=== PATIENT | male | born 1965 | race Hispanic/Latino ===

== ENCOUNTER 2018-05-16 06:16 | Day surgery (SDC) | payer OTHER ==
[2018-05-16] MEDS ORDERED: Tranexamic Acid 2 ML ONE (07:10)
[2018-05-16] MEDS ORDERED: Vancomycin 1 g Inj ONE ×2 (07:10→09:17)
[2018-05-16] MEDS ORDERED: Sodium Chloride 0.9% 40 ML IV ONE (07:11)
[2018-05-16] MEDS ORDERED: Bupivacaine 0.5% Inj(30mL) ONE ×2 (07:12→09:25)
[2018-05-16] MEDS ORDERED: Bupivacaine Liposomal Inj 20 ml ONE (07:13)
[2018-05-16] MEDS ORDERED: Midazolam 2 MG/2 ML VIAL ONE (07:23)
[2018-05-16] MEDS ORDERED: Propofol 10 mg/ml Inj (20 ML) ONE ×2 (07:23→08:25)
[2018-05-16] MEDS ORDERED: Rocuronium 10 mg/ml (5 ml) ONE (07:27)
[2018-05-16] MEDS ORDERED: Morphine 4 mg/ml ISec ONE ×2 (08:06→09:36)
[2018-05-16] MEDS ORDERED: Neostigmine Methylsulfate 3mg/3ml Syringe IV ONE (08:09)
[2018-05-16] MEDS ORDERED: Oxycodone/Acetaminophen 5/325 mg Tab PO PRN (11:05)
--- NOTE | 2018-05-16 11:05 | PCM.SURG1 ---
Surgeon's Initial Post Op Note - Surgeon's Notes Surgeon: Jayce Keith MD Color Adviser: Radha Zavala PA-C Type of Anesthesia: General Endo Anesthesia Administered By: Dr. Tobin Pre-Operative Diagnosis: left knee osteoarthritis Operative Findings: see full note Post-Operative Diagnosis: same Operation Performed: left partial knee replacement Specimen/Specimens Removed: none Estimated Blood Loss: EBL {In ML}: 50 Blood Products Given: N/A Drains Used: No Drains Post-Op Condition: Fair Date of Surgery/Procedure: 05/16/18 Time of Surgery/Procedure: 11:04
[2018-05-16] MEDS ORDERED: HYDROmorphone 0.5 mg/0.5 ml ISec ONE ×2 (11:08→11:34)
[2018-05-16] MEDS ORDERED: Pantoprazole 40 mg EC Tab PO PRN (11:12)
[2018-05-16] MEDS: HYDROmorphone 0.5 mg/0.5 ml ISec IVP PRN ×4 (11:21→23:52)
[2018-05-16] MEDS ORDERED: HYDROmorphone 0.5 mg/0.5 ml ISec IVP PRN (11:43)
--- NOTE | 2018-05-16 11:52 | RAD ---
Date of service: 05/16/2018 PROCEDURE: Left Knee Radiographs. HISTORY: Pain. COMPARISON: None. FINDINGS: BONES: Status post left knee medial hemiarthroplasty. No acute fracture. Prosthesis grossly intact. There is air in the suprapatellar bursa consistent with postoperative change. There is also suprapatellar bursal fluid. JOINTS: Medial hemiarthroplasty JOINT EFFUSION: None. OTHER FINDINGS: None. IMPRESSION: Status post medial hemiarthroplasty.
[2018-05-16 12:59] VITALS: BMI 29.0
[2018-05-16] MEDS ORDERED: Pneumococcal 23-Valent Vaccine IM ONE (13:28)
[2018-05-16] MEDS ORDERED: Influenza Vaccine 60 mcg/0.5 mL SYR (4YR UP) IM ONE (13:28)
[2018-05-16] MEDS ORDERED: HYDROmorphone 1 mg/ml PCA 30 ML IV PRN (16:08)
[2018-05-16] MEDS: ceFAZolin IV 2 gm in Dextrose 2 GM/50 ML BAG IVPB SCH ×2 (17:10→23:52)
[2018-05-16] MEDS: Oxycodone/Acetaminophen 5/325 mg Tab PO PRN ×2 (17:39→22:17)
--- NOTE | 2018-05-16 23:17 | OP ---
PROCEDURE DATE: 05/16/2018 PREOPERATIVE DIAGNOSIS: Left knee medial compartment arthrosis. POSTOPERATIVE DIAGNOSIS: Left knee medial compartment arthrosis. PROCEDURE: Left medial compartment arthroplasty. SURGEON: Tomer Keith MD ASSISTANTS: Dr. Keith was assisted by Claire Ibarra and Elvie Castorena, the physician assistants. Both physician assistants were scrubbed and present throughout the entire case and assisted in patient positioning, retraction and closure. ANESTHESIA: General. COMPLICATIONS: None. ESTIMATED BLOOD LOSS: 20 mL. TOURNIQUET TIME: 130 minutes at 300 mmHg. IMPLANT: Biomet partial knee replacement. INDICATION FOR PROCEDURE: This is a 52-year-old gentleman who presented with longstanding medial-sided knee pain. Clinical examination was consistent with a medial joint line tenderness to palpation. The patient was noted to be stable with varus and valgus stress. The patient was noted to have a negative Jason and negative posterior drawer. Radiographic and MRI examination was consistent with [id number] medial compartment disease and also some mild patellofemoral degenerative changes. After a period of failed nonsurgical management, recommendations were for left partial knee replacement. The risks, benefits and alternatives of the procedure were discussed with the patient including the possibility of later conversion to a total knee replacement and the patient understood these risks and informed consent was obtained. OPERATIVE PROCEDURE: After the surgical site was signed in the preoperative holding area, the patient was taken to the operating room and placed supine on the operating room table. After the administration of general anesthesia, the patient received 2 g of Ancef IV. Tourniquet was placed about the left thigh. Care was taken to make sure all bony prominences and nerves were well padded and protected and the left lower extremity was prepped and draped in the usual sterile fashion. Left lower extremity was exsanguinated and tourniquet was inflated. Approximately 6 cm medial parapatellar longitudinal incision was made. Soft tissues were dissected sharply down to the capsule and a medial arthrotomy was performed. Once the knee joint was exposed, the medial meniscus and part of the anterior fat pad were resected to give us excellent visualization of the medial compartment. Next, using the extramedullary tibial alignment guide, the alignment guide was pinned into place and satisfied with our alignment, a tibial resection was performed. Next, the flexion gap was checked with the appropriate size spacer and our attention was directed to the femur. Central portion of the medial condyle at a point perpendicular to the tibial component, the first part of the hole was then drilled using femoral guide jig and similarly the central plug hole was then drilled. With femoral posterior cutting guide in place, posterior resection was performed. At this point, using a reamer and the appropriate , the medial femoral condyle was reamed until the flexion and extension gaps were balanced and equal. At this point, any excess bone around the periphery of the implant was then rongeured away. Satisfied, a trial tibia, trial femur, and trial bearing was placed and the patient was noted to have full extension and flexion and stable throughout range of motion and stable with varus and valgus stress. The trial components were then removed. The holes in our medial femoral condyle were drilled to allow for cement interdigitation. At this point, the knee joint was pulse lavaged with antibiotic saline solution and the bony surfaces were dried. Prior to cementing, the keel hole for our tibial component was drilled using a reciprocating saw. At this point, the actual tibial and femoral components were cemented with a trial bearing. The knee was held in approximately 40 degrees of flexion while axial compression was applied across the knee to allow for pressurization of the component. Once the cement had hardened, the wound was expected for any debris and any excess cement was removed. The knee joint was once again pulse lavaged and the actual bearing was then inserted. At this point, the knee was taken through range of motion and again was noted to have full extension and flexion and stable throughout. The varus and valgus stress was applied to ensure that the MCL and LCL was still competent. Satisfied, the arthrotomy was closed also using #1 Vicryl suture. The subcutaneous tissue was closed using 2-0 Vicryl suture and the skin was closed using 3-0 nylon. Sterile dressing was applied and a knee immobilizer was placed. The patient was awakened from the procedure and taken to the recovery room in stable condition. Tomer Keith MD
[2018-05-17] MEDS: Oxycodone/Acetaminophen 5/325 mg Tab PO PRN ×2 (03:31→11:15)
--- NOTE | 2018-05-17 07:41 | CP.PCM.PN ---
Subjective - Date & Time of Evaluation Date of Evaluation: 05/17/18 Time of Evaluation: 07:39 - Subjective Subjective: Patient see and examined. POD#1 s/p L partial knee replacement. Patient doing good. Denies any significant pain L knee: dressings clean dry and intact. Calf and thigh are soft and non-tender. NVI distally POD#1 s/p L partial knee replacement discharge to home crutches for support as needed Prescription for keflex and pain medication in chart Will see patient in Dr. Keith's office on Tuesday for a wound check Objective - Vital Signs/Intake and Output Vital Signs (last 24 hours): Temp Pulse Resp BP Pulse Ox 98.3 F 86 18 127/79 96 05/16/18 22:42 05/16/18 22:42 05/16/18 22:42 05/16/18 22:42 05/16/18 22:42 Intake and Output: 05/17/18 05/17/18 06:59 18:59 Intake Total 840 Output Total 1150 Balance -310 - Medications Medications: Current Medications Acetaminophen (Tylenol 325mg Tab) 650 mg PO Q6H NESTOR Last Admin: 05/16/18 23:51 Dose: 650 mg Aspirin (Ecotrin) 325 mg PO BID [facility] Hydromorphone HCl (Dilaudid) 0.5 mg IVP Q4H PRN PRN Reason: Pain, severe (8-10) Last Admin: 05/16/18 23:52 Dose: 0.5 mg Hydromorphone HCl (Dilaudid) 0.5 mg IVP Q10M PRN PRN Reason: PRN PAIN SCALE 4-10 Metoclopramide HCl (Reglan) 10 mg IVP Q6H PRN PRN Reason: Nausea/Vomiting Last Admin: 05/16/18 15:49 Dose: 10 mg Oxycodone/Acetaminophen (Percocet 5/325 Mg Tab) 2 tab PO Q4H PRN PRN Reason: Pain, moderate (4-7) Stop: 05/19/18 11:06 Last Admin: 05/17/18 03:31 Dose: 2 tab Pantoprazole Sodium (Protonix Ec Tab) 40 mg PO DAILY PRN PRN Reason: Heartburn
[2018-05-17 07:56] VITALS: BP 135/79; PULSE 85; RESP 20; TEMP 98.4; O2SAT 95
[2018-05-17] MEDS: HYDROmorphone 0.5 mg/0.5 ml ISec IVP PRN (08:32)
[2018-05-17] MEDS ORDERED: Aspirin 325 mg EC Tablets PO SCH (10:00)
[2018-05-17] MEDS ORDERED: HYDROmorphone 1 mg/ml ISec IVP PRN (10:24)
== END 2018-05-17 12:30 | disposition home or self-care (01) ==
LOC: SDS 06:16 → UNDOADMIN 06:22 → SDAINP 06:22 → EDSTATUS 07:30 → 5RNO 12:23 → SDAINP 12:23 → SDS 05-17 12:30 → UNDODISIN 05-17 12:30
PROVIDERS: ATTEND Orthopaedic Surgery
DX: M17.12 Unilateral primary osteoarthritis, left knee (principal)

== ENCOUNTER 2019-01-06 18:11 | Emergency (ER) | payer OTHER ==
[2019-01-06 18:11] VITALS: BMI 27.0
[2019-01-06 18:28] VITALS: BP 160/85; PULSE 92; RESP 17; TEMP 98.2; O2SAT 97
--- NOTE | 2019-01-06 18:44 | ED PDOC ---
Arrival/HPI - General Chief Complaint: Finger,Hand,&Wrist Time Seen by Provider: 01/06/19 18:21 Historian: Patient, Spouse - History of Present Illness Narrative History of Present Illness (Text): 01/06/19 18:45 53 year old male, with past medical history of partial knee replacement surgery, presents to emergency department following what he thinks may be a spider bite at 4:00 pm earlier today. Patient states he saw a spider outside and while he was outside, noticed redness and swelling that emerged after. states she gave him a teaspoon of children's benadryll and put ice on his hand half an hour ago with no significant improvement. Patient denies any fevers, chills, tremors, or any other complaints. Time/Duration: Other (4:00 pm today) Symptom Onset: Gradual Symptom Course: Unchanged Activities at Onset: Light Context: Home Past Medical History - Provider Review Nursing Documentation Reviewed: Yes Primary Care Provider: Greg Cash - Tetanus Immunization Tetanus Immunization: Up to Date - Cardiac Hx Cardiac Disorders: No - Pulmonary Hx Respiratory Disorders: No - Neurological Hx Neurological Disorder: No - HEENT Hx HEENT Disorder: No - Renal Hx Renal Disorder: No - Endocrine/Metabolic Hx Endocrine Disorders: No - Hematological/Oncological Hx Blood Disorders: No - Integumentary Hx Dermatological Disorder: No - Musculoskeletal/Rheumatological Hx Musculoskeletal Disorders: Yes (L THUMB FX WITH SX.,L PARTIAL KNEE REPLACEMENT 05-16-18.HAD GELL KNEE INJECT) Hx Falls: No - Gastrointestinal Hx Gastrointestinal Disorders: Yes (RIGHT INGUINAL HERNIORHAPPHY) - Genitourinary/Gynecological Hx Genitourinary Disorders: No - Psychiatric Hx Psychophysiologic Disorder: No Hx Emotional Abuse: No Hx Physical Abuse: No Hx Substance Use: No - Surgical History Hx Joint Replacement: Yes - Anesthesia Hx Anesthesia Reactions: No Hx Malignant Hyperthermia: No - Suicidal Assessment Feels Threatened In Home Enviroment: No Family/Social History - Physician Review Nursing Documentation Reviewed: Yes Family/Social History: No Known Family HX Smoking Status: Never Smoked Hx Alcohol Use: Yes Frequency of alcohol use: Few days per week Hx Substance Use: No Hx Substance Use Treatment: No Allergies/Home Meds Allergies/Adverse Reactions: Allergies No Known Allergies Allergy (Verified 05/16/18 12:24) verified 01/13/14 Home Medications: Home Meds Medication Instructions Recorded Confirmed Pantoprazole Sodium [Protonix] 40 mg PO DAILY PRN 04/19/18 05/16/18 Review of Systems - Physician Review All systems were reviewed & negative as marked: Yes - Review of Systems Constitutional: absent: Fevers Respiratory: absent: SOB Skin: Other (redness and swelling to left hand ) Physical Exam - Physical Exam Narrative Physical Exam (Text): 01/06/19 18:44 Constitutional: No acute distress. Head: Normocephalic. Atraumatic. Eyes: PERRL. ENT: Moist mucous membranes. Neck: Supple. Cardiovascular: Regular rate. Chest: No tenderness. Respiratory: Clear to auscultation bilaterally. GI: Soft. Nontender. Nondistended. Back: No CVA tenderness. Musculoskeletal: FROM hand, wrist, elbow. Skin: errythema and edema to hand, proximal forearm, warm Neurologic: Alert, no focal deficit. Vital Signs Reviewed: Yes Vital Signs Temp Pulse Resp BP Pulse Ox 01/06/19 18:25 98.2 F 92 H 17 160/85 H 97 Temperature: Afebrile Blood Pressure: Normal Pulse: Regular Respiratory Rate: Normal Appearance: Positive for: Well-Appearing, Non-Toxic, Comfortable Pain Distress: None Mental Status: Positive for: Alert and Oriented X 3 Medical Decision Making ED Course and Treatment: 01/06/19 18:55 Impression: 53 year old male presents to emergency department for redness and swelling following possible spider bite to the left hand at 4 pm today. Antibiotics, cold compresses, gravity, ibuprofen, observe for worsening or spreading erythema or pain or inability to range joints to return to ED. - Scribe Statement The provider has reviewed the documentation as recorded by the Scribe Anatoly Willingham All medical record entries made by the Scribe were at my direction and personally dictated by me. I have reviewed the chart and agree that the record accurately reflects my personal performance of the history, physical exam, medic al decision making, and the department course for this patient. I have also personally directed, reviewed, and agree with the discharge instructions and disposition. Disposition/Present on Arrival - Present on Arrival Any Indicators Present on Arrival: No History of DVT/PE: No History of Uncontrolled Diabetes: No Urinary Catheter: No History of Decub. Ulcer: No History Surgical Site Infection Following: None - Disposition Have Diagnosis and Disposition been Completed?: Yes Diagnosis: Hand swelling Disposition: HOME/ ROUTINE Disposition Time: 19:00 Patient Plan: Discharge Condition: GOOD Discharge Instructions (ExitCare): Insect Bites and Stings Prescriptions: Doxycycline Monohydrate [Mondoxyne Nl] 100 mg PO BID #20 capsule Forms: [employer] (Congolese)
== END 2019-01-06 19:00 | disposition home or self-care (01) ==
LOC: ED 18:11
DX: M79.89 Other specified soft tissue disorders (principal)